=== PATIENT | male | born 1990 | race Two or more races ===

== ENCOUNTER 2025-06-10 12:44 | Observation (INO) ==
--- NOTE | 2025-06-10 12:57 | Emergency Department Note ---
Impression & Plan Anaphylaxis, Allergic reaction, Urticaria ED Provider Note NAME: ROCKY KRAUS AGE: 34 SEX: M : 1990 ARRIVES VIA: Ambulance INFORMANT: Patient, ED PROVIDER(S): Herb Cartagena DO CHIEF COMPLAINT: Bee sting HPI: Patient is a 34-year-old male who presents to the ER following being stung by 2 bees. After this he became short of breath and was initially given 1 round of epinephrine upon arrival. Upon arrival of ALS he was at this point and was not really responsive per ALS who provided additional history. He was diffusely diaphoretic and erythematous and they gave him another round of epinephrine in combination with neb treatments, Solu-Medrol and 50 mg of Benadryl. Following this they noted that his wheezing improved and he woke up and was able to communicate. Patient admits that he still little short of breath. Denies any chest pain currently. ADDITIONAL HISTORY OBTAINED: Per HPI additional history was obtained from EMS Chronic Medical/Social Conditions Affecting Care: Per HPI PAST MEDICAL HISTORY:See Below PAST SURGICAL HISTORY:See Below FAMILY HISTORY:See Below SOCIAL HISTORY:See Below HOME MEDICATIONS:See Below ALLERGIES:See Below VITALS:See Below PHYSICAL EXAMINATION: GENERAL: Sitting up in bed, alert, slightly ill-appearing, diffusely red EYE EXAM: normal conjunctiva. PERRL and EOM's grossly intact. OROPHARYNX: no exudate, no erythema, lips, buccal mucosa, and tongue normal and mucous membranes are moist NECK: supple, no nuchal rigidity, no adenopathy, non-tender LUNGS: Clear to auscultation. Normal chest wall mechanics HEART: no murmurs, S1 normal and S2 normal ABDOMEN: abdomen soft, non-tender, normo-active bowel sounds, no masses, no rebound or guarding. BACK: Back is symmetrical on inspection and there is no deformity, no midline tenderness, no CVA tenderness. SKIN: Diffuse erythema UPPER EXTREMITIES: upper extremities are grossly normal. LOWER EXTREMITIES: No pitting edema. NEURO EXAM: Normal sensorium, cranial nerves II-XII grossly intact, normal speech, no gross weakness of arms, no gross weakness of legs. MEDICAL DECISION MAKING: Patient is a 34-year-old male who presents to the ER following being stung by 2 bees. IV was established and blood work is obtained. Prior to arrival he received 2 rounds of epinephrine in combination with Benadryl steroids and per report he was nearly unresponsive. Symptoms have improved significantly. Labs showed no significant leukocytosis or anemia. BMP with mild hypokalemia at 3.4. LFTs bilirubin and troponin was negative. Lipase normal. Chest x-ray was unremarkable. He was given IV Decadron here and IV Pepcid as well as IV fluids. He was updated bedside. Discussed the case with Franklin Medel from the hospitalist service for further evaluation management treatment. Consults/Care Managements Discussions: Per [facility] Triage Nursing notes reviewed. Limited review of prior medical records performed Vital Signs: reviewed and remarkable for no significant abnormalities Differential diagnosis: Differential diagnoses includes but is not limited to toxic, metabolic, infectious, traumatic, cardiac, neurologic, hematologic, psychiatric and inflammatory etiologies. ER treatment provided: See below Diagnostics interpreted by me include EKG and cardiac monitoring as listed below: -Cardiac Monitoring: An order was placed for continuous cardiac monitoring. The monitor shows a rate of 110 with sinus rhythm. -ECG: Sinus tachycardia rate of 115 Normal axis No PVCs QTc 454 -Laboratory studies:Interpreted by me as stated above in MDM and shown below. Imaging studies: Xrays: As interpreted by me: Portable AP upright 1 view of the chest shows no focal infiltrate CTs show: None Procedures: None Critical Care: None Past Med/Surg History Problem List (Updated 06/10/25 @ 15:13 by Herb Cartagena DO) Urticaria (Acute) Allergic reaction (Acute) Anaphylaxis (Acute) Social History Smoking Status: Never smoker Preferred Language: Cymraes Feels Safe at Home: Yes Allergies Allergies Allergy/AdvReac Type Severity Reaction Status Date / Time bee pollen Allergy Intermediate SWELLING Verified 06/10/25 14:59 AT SITES peanut Allergy Mild TINGLING Verified 06/10/25 14:59 OF TONGUE A CHILD--AVOIDS Home Meds Home Medications Medication Instructions Recorded Confirmed acetaminophen 500 mg tablet 500 mg PO Q6H PRN PAIN/ACHES/FEVER 06/10/25 06/10/25 (Tylenol Extra Strength) Results & Data (ED) Vital Signs Vital Signs - 24 hr 06/10/25 12:52 06/10/25 13:01 06/10/25 13:02 Temperature 36.5 C Temperature Source Oral Pulse Rate 130 H 121 H 113 H Respiratory Rate 18 19 Respiratory Effort / Characteristics Non-Labored Spontaneous Respiratory Depth Normal Respiratory Pattern Regular Blood Pressure 101/87 125/67 Blood Pressure Mean 91 91 Pulse Oximetry 97 97 Oxygen Delivery Method Room Air Room Air Sepsis Recent Fever Within 48 Hours No Sepsis New/Unexplained Change in Mental Status No Sepsis Action Taken by Nursing No Action Required 06/10/25 13:05 06/10/25 13:07 06/10/25 13:10 Temperature Temperature Source Pulse Rate 110 H 102 H Respiratory Rate 21 19 Respiratory Effort / Characteristics Respiratory Depth Respiratory Pattern Blood Pressure 127/81 131/72 Blood Pressure Mean 91 107 Pulse Oximetry 97 99 99 Oxygen Delivery Method Room Air Room Air Sepsis Recent Fever Within 48 Hours Sepsis New/Unexplained Change in Mental Status Sepsis Action Taken by Nursing 06/10/25 13:16 06/10/25 13:30 06/10/25 13:45 Temperature Temperature Source Pulse Rate 102 H 112 H 112 H Respiratory Rate 19 17 14 Respiratory Effort / Characteristics Respiratory Depth Respiratory Pattern Blood Pressure 101/73 117/72 113/69 Blood Pressure Mean 84 80 77 Pulse Oximetry 100 100 98 Oxygen Delivery Method Room Air Room Air Sepsis Recent Fever Within 48 Hours Sepsis New/Unexplained Change in Mental Status Sepsis Action Taken by Nursing 06/10/25 14:00 06/10/25 14:15 06/10/25 14:41 Temperature Temperature Source Pulse Rate 112 H 117 H 119 H Respiratory Rate 21 19 19 Respiratory Effort / Characteristics Respiratory Depth Respiratory Pattern Blood Pressure 107/68 110/67 115/79 Blood Pressure Mean 80 77 87 Pulse Oximetry 98 98 99 Oxygen Delivery Method Sepsis Recent Fever Within 48 Hours Sepsis New/Unexplained Change in Mental Status Sepsis Action Taken by Nursing Laboratory Data 06/10/25 12:54 06/10/25 12:54 Lab Results 06/10/25 06/10/25 Range/Units 12:54 12:59 WBC 9.59 (4.8-10.8) K/ul RBC 5.23 (4.70-6.10) M/uL Hgb 15.8 (14.0-18.0) g/dL POC Hgb 16.0 (14.0-18.0) g/dl Hct 45.4 (42.0-52.0) % POC Hct 47 (42-52) % MCV 86.8 (80.0-100.0) fL MCH 30.2 (25.0-34.0) pg MCHC 34.8 (32.0-36.0) g/dL RDW Std Deviation 37.8 (36.4-46.3) fL RDW Coeff of Alirio 11.9 (11.5-14.5) % Plt Count 356 (130-400) K/uL MPV 9.6 (9.4-12.4) fL Immature Gran % (Auto) 0.3 % Neut % (Auto) 52.6 % Lymph % (Auto) 37.9 % [place] % (Auto) 8.3 % Eos % (Auto) 0.8 % Baso % (Auto) 0.1 % Neut # (Auto) 5.04 (1.40-6.50) K/uL Lymph # (Auto) 3.63 H (1.20-3.40) K/uL [place] # (Auto) 0.80 H (0.11-0.59) K/uL Eos # (Auto) 0.08 (0.00-0.50) K/uL Baso # (Auto) 0.01 (0.00-0.20) K/uL Immature Gran # (Auto) 0.03 (0.01-0.20) K/uL POC Sodium 140 (135-144) mmol/L Sodium 140 (136-145) mmol/L POC Potassium 3.4 (3.3-5.0) mmol/L Potassium 3.4 L (3.5-5.1) mmol/L POC Chloride 105 (101-112) mmol/L Chloride 105 (98-107) mmol/L Carbon Dioxide 22 (21-32) mmol/L POC Total CO2 20 L (24-31) mmol/L Anion Gap 13 H (3-11) POC Anion Gap 19.0 (16-25) mmol/L POC BUN 16 (7-18) mg/dl BUN 17 (6-23) mg/dl Creatinine 1.15 (0.6-1.4) mg/dl POC Creatinine 1.2 (0.6-1.3) mg/dl Est Cr Clr Drug Dosing 103.9 ml/min eGFR 86.18 BUN/Creatinine Ratio 14.8 (10-20) Glucose 148 H (70-99(Fasting)) mg/dl POC Glucose (other) 146 H (70-99) mg/dl Calcium 9.7 (8.6-10.3) mg/dl POC Ioniz Calcium Bennie 1.13 (1.12-1.32) mmol/l Total Bilirubin 0.7 (0.2-1.0) mg/dl AST 18 (13-39) U/L ALT 19 (7-52) U/L Alkaline Phosphatase 78 (34-104) U/L Troponin I High Sens 2.4 (0-20) pg/ml Total Protein 7.3 (6.0-8.3) gm/dl Albumin 4.5 (3.4-5.0) gm/dl Globulin 2.8 (2.5-4.0) gm/dl Albumin/Globulin Ratio 1.6 (0.9-2) Lipase 50 (11-82) U/L Administered Medications Discontinued Medications Dexamethasone Sodium Phosphate (DexamethasonePf 10 Mg/Ml Vial) 10 mg IV NOW ONE Stop: 06/10/25 12:51 Last Admin: 06/10/25 12:58 Dose: 10 mg Documented By: RAFITA Diphenhydramine HCl (Diphenhydramine 50 Mg/Ml Vial) 25 mg IV NOW STA Stop: 06/10/25 12:53 Last Admin: 06/10/25 12:58 Dose: 25 mg Documented By: RAFITA Famotidine (Pepcid 20mg Iv Push) 20 mg in 5 mls @ 2.5 mls/min IV NOW STA Stop: 06/10/25 12:51 Last Admin: 06/10/25 12:58 Dose: 2.5 mls/min Documented By: RAFITA Sodium Chloride (Nss) 1,000 mls @ 999 mls/hr IV .Q1H1M ONE Stop: 06/10/25 13:52 Last Infusion: 06/10/25 14:46 Dose: Infused Documented By: Admin: 06/10/25 12:58 Dose: 999 mls/hr Documented By: RAFITA Imaging Data Radiologist's Impression: Chest X-Ray 06/10/25 12:50 SINGLE VIEW CHEST CLINICAL HISTORY: Chest pain. Allergic reaction to bee sting. FINDINGS: An AP, portable, semierect chest radiograph is obtained. No prior studies are available for comparison at the time of dictation. The examination is degraded by portable technique and patient rotation. The cardiomediastinal silhouette is unremarkable. There is mild bibasilar atelectasis. The lungs and pleural spaces are otherwise clear. No pneumothorax is seen. The bony thorax is grossly intact. IMPRESSION: No acute cardiopulmonary abnormality is identified. ACT 112: Negative or not required by law. Electronically signed by: Paddy Romano M.D. 06/10/2025 1:07 PM Discharge Plan Visit Data Chief Complaint: Allergic Reaction Stated Complaint: ALLERGIC REACTION ED Provider: Herb Cartagena Discharge Problem: Anaphylaxis, Allergic reaction, Urticaria Condition: Fair Forms Stand Alone Forms: [facility] [employer] Prescriptions Prescriptions: No Action acetaminophen [Tylenol Extra Strength] 500 mg Tablet 500 mg PO Q6H PRN (Reason: PAIN/ACHES/FEVER) Referrals Referrals: PCP,NO [Primary Care Provider] - Discharge Problem: Anaphylaxis Qualifiers: Encounter type: initial encounter Qualified Code(s): T78.2XXA - Anaphylactic shock, unspecified, initial encounter Allergic reaction Qualifiers: Encounter type: initial encounter Qualified Code(s): T78.40XA - Allergy, unspecified, initial encounter
[2025-06-10] MEDS: diphenhydrAMINE 50 MG/ML VIAL IV STA (12:58)
[2025-06-10] MEDS: FAMOTIDINE 20MG IV PUSH 20 MG/5 ML SYR IV STA (12:58)
[2025-06-10] MEDS: dexAMETHasone**PF** 10 MG/ML VIAL IV ONE (12:58)
[2025-06-10] MEDS: SODIUM CHLORIDE 0.9% 1,000 ML IV ONE (12:58)
--- NOTE | 2025-06-10 13:09 | XRay Report ---
SINGLE VIEW CHEST CLINICAL HISTORY: Chest pain. Allergic reaction to bee sting. FINDINGS: An AP, portable, semierect chest radiograph is obtained. No prior studies are available for comparison at the time of dictation. The examination is degraded by portable technique and patient r otation. The cardiomediastinal silhouette is unremarkable. There is mild bibasilar atelectasis. The lungs and pleural spaces are otherwise clear. No pneumothorax is seen. The bony thorax is grossly int act. IMPRESSION: No acute cardiopulmonary abnormality is identified. ACT 112: Negative or not required by law. Electronically signed by: Paddy Romano M.D. 06/10/2025 1:07 PM
[2025-06-10 13:23] LABS: Hematocrit (blood only) 45.4 % (42.0-52.0); Hemoglobin 15.8 g/dL (14.0-18.0); Immature Granulocytes # (auto) 0.03 K/uL (0.01-0.20); Immature Granulocytes % (auto) 0.3 %; Mean Corpuscular Hemoglobin 30.2 pg (25.0-34.0); Mean Corpuscular Volume 86.8 fL (80.0-100.0); Platelet Count 356 K/uL (130-400); RDW Standard Deviation 37.8 fL (36.4-46.3); Red Blood Count 5.23 M/uL (4.70-6.10); White Blood Count 9.59 K/ul (4.8-10.8)
[2025-06-10 13:39] LABS: Alanine Aminotransferase 19.0 U/L (7-52); Albumin Globulin Ratio 1.6 (0.9-2); Albumin Level 4.5 gm/dl (3.4-5.0); Alkaline Phosphatase 78.0 U/L (34-104); Anion Gap 13.0 (3-11); Bilirubin,Total 0.7 mg/dl (0.2-1.0); Blood Urea Nitrogen 17.0 mg/dl (6-23); Calcium 9.7 mg/dl (8.6-10.3); Carbon Dioxide 22.0 mmol/L (21-32); Chloride 105.0 mmol/L (98-107); Creatinine Clr Calc Pharmacy 103.9 ml/min; Globulin 2.8 gm/dl (2.5-4.0); Glucose 148.0 mg/dl (70-99(Fasting)); Lipase 50.0 U/L (11-82); Potassium 3.4 mmol/L (3.5-5.1); Sodium 140.0 mmol/L (136-145); Total Protein 7.3 gm/dl (6.0-8.3)
--- NOTE | 2025-06-10 14:51 | History & Physical Report ---
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 Unclear if this is a joe allergic reaction or toxidrome consequential of a large volume of bee venom resulting in a non-perfusing cardiac arrhythmia; nonetheless resuscitation was successful with interventions provided; the pa rory will remain admitted for observation and symptom resolution; given that this was a biphasic anaphylactic reaction given the duration of his symptomatology and volume of epinephrine needed for resuscitation, would prefer 24-hour observation and asymptomatic duration of at minimum 6 hours before discharge; patient is eager for discharge this evening due to family reasons, we discussed the risks of potential premature discharge and the patient is understanding of this Monitor with continuous cardiac telemetry History of Present Illness Chief Complaint: Anaphylaxis versus toxidrome Primary Care Provider: NO PCP Mr. 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 En route to the hospital patient was administered 2 doses of epinephrine, 1 dose of Benadryl, 2 DuoNeb treatments, 120 mg of Solu-Medrol. Upon arrival in the emergency department the patient was then administered 10 mg of Decadron and 40 mg of Pepcid. At the time my evaluation the patient is alert, able to maintain conversation and has some recollection of the events that led to his hospitalization. He denies any chest pain, palpitations, shortness of breath, pleuritic chest pain. The patient does note epigastric discomfort that is mild in severity and does not radiate. Allergies Allergy/AdvReac Type Severity Reaction Status Date / Time bee pollen Allergy Intermediate SWELLING Verified 06/10/25 14:59 AT SITES peanut Allergy Mild TINGLING Verified 06/10/25 14:59 OF TONGUE A CHILD--AVOIDS Home Medications Medication Instructions Recorded Confirmed Type acetaminophen 500 mg tablet 500 mg PO Q6H PRN PAIN/ACHES/FEVER 06/10/25 06/10/25 History (Tylenol Extra Strength) Past Med/Surg History Problem List (Updated 06/10/25 @ 16:42 by Franklin Medel DO) Bee sting-induced anaphylaxis (Acute) Anaphylaxis (Acute) Social History Smoking Status: Never smoker Preferred Language: Hungarian Feels Safe at Home: Yes Review of Systems Review of Systems: Review of constitutional, cardiovascular, pulmonary, gastrointestinal, integumentary system was unremarkable except for pertinent positive and negative findings discussed above Physical Exam Physical Exam: General: Adult male in no acute distress Vital Signs: Reviewed; persistently tachycardic with regular RR interval noted on telemetry HEENT: Increased tearing; uvula is midline with no significant posterior oropharyngeal injury or inflammation Neck: Trachea is midline Pulmonary: Symmetric chest wall excursion without restriction; clear to auscultation bilaterally Cardiovascular: Tachycardic rate with regular rhythm; no murmurs rubs or gallops; S1 and S2 normal; right radial pulse 2+; no notable lower extremity e tala Gastrointestinal: Soft, nondistended; normal bowel sounds throughout Neurologic: Cranial nerves II through XII grossly intact; no discernible focal weakness nor paresthesia Skin: Large welt present overlying the patient's right anterior neck and first MCP of the right hand, these are nontender to palpation Results & Data Results & Data Vital Signs (Past 12 Hours) Vital Signs Temp Pulse Resp BP Pulse Ox O2 Del Method 06/10/25 14:41 119 H 19 115/79 99 06/10/25 14:15 117 H 19 110/67 98 06/10/25 14:00 112 H 21 107/68 98 06/10/25 13:45 112 H 14 113/69 98 Room Air 06/10/25 13:30 112 H 17 117/72 100 06/10/25 13:16 102 H 19 101/73 100 Room Air 06/10/25 13:10 102 H 19 131/72 99 06/10/25 13:07 99 Room Air 06/10/25 13:05 110 H 21 127/81 97 Room Air 06/10/25 13:02 113 H 06/10/25 13:01 121 H 19 125/67 97 Room Air 06/10/25 12:52 36.5 C 130 H 18 101/87 97 Room Air Code Status & VTE Plan Code Status Full code PG Care Time/CCT Total # of Minutes Spent Total Time Spent with Patient: Total time spent is greater than 50% in coordination of care (as documented) at patient's floor/unit and/or counseling patient: Coding Level of Care Code 18635 INT INP/OBS CARE Diagnoses Bee sting-induced anaphylaxis T63.441A; T78.2XXA Anaphylaxis T78.2XXA Encounter type: initial encounter (2) Anaphylaxis Encounter type: initial encounter Qualified Code(s): T78.2XXA - Anaphylactic shock, unspecified, initial encounter
--- NOTE | 2025-06-10 17:18 | Electrocardiogram Report ---
Test Reason : Blood Pressure : */* mmHG Vent. Rate : 115 BPM Atrial Rate : * BPM P-R Int : 200 ms QRS Dur : 80 ms QT Int : 312 ms P-R-T Axes : * 65 55 degrees QTcB Int : 432 ms Sinus tachycardia No previous ECGs available Confirmed by Daniel Diana ([id number]) on 06/10/2025 5:18:32 PM Referred By: Confirmed By: Daniel Diana
[2025-06-10] MEDS: ENOXAPARIN INJ 40 MG/0.4 ML SYR SQ SCH (21:12)
[2025-06-11 02:56] VITALS: BP 118/57; PULSE 89; RESP 20; TEMP 97.7; O2SAT 98
--- NOTE | 2025-06-11 14:43 | Discharge Summary ---
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 Unclear if this is a joe allergic reaction or toxidrome consequential of a large volume of bee venom resulting in a non-perfusing cardiac arrhythmia; nonetheless, resuscitation was successful with interventions provided; the patient remained admitted for observation and symptom resolution; given that this was a biphasic anaphylactic reaction, given the duration of his symptomatology and volume of epinephrine needed for resuscitation, he was observed overnight to ensure a minimum of 6 hours without recurrent symptoms Epipen prescribed at discharge - Strongly encouraged the patient to establish with a local primary care provider Admission HPI Per Admitting Provider Mr. 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 En route to the hospital patient was administered 2 doses of epinephrine, 1 dose of Benadryl, 2 DuoNeb treatments, 120 mg of Solu-Medrol. Upon arrival in the emergency department the patient was then administered 10 mg of Decadron and 40 mg of Pepcid. At the time my evaluation the patient is alert, able to maintain conversation and has some recollection of the events that led to his hospitalization. He denies any chest pain, palpitations, shortness of breath, pleuritic chest pain. The patient does note epigastric discomfort that is mild in severity and does not radiate. Discharge Exam General: Adult male in no acute distress Vital Signs: Reviewed Pulmonary: Symmetric chest wall excursion without restriction Cardiovascular: Regular rate and rhythm with right radial pulse 2+; no notable lower extremity edema Neurologic: Cranial nerves II through XII grossly intact; no discernible focal weakness nor paresthesia Skin: Large welt present overlying the patient's right anterior neck and first MCP of the right hand, these are nontender to palpation Discharge Plan Discharge Items Patient Disposition: Home - Self-Care Reason For Visit: BIPHASIC ANAPHYLAXIS Discharge Diagnosis: Biphasic anaphylaxis Condition on Discharge: Fair Activity: Per Instructions section Non-emergency contact: Primary Care Provider Call non-emergency contact if: you have any medication questions and your symptoms worsen Follow-up/Referrals: PCP,NO [Primary Care Provider] - Diet: Regular Fluids: 2000ml (8 cups) Addtl Attending Provider Instructions: You were admitted to [facility] for biphasic anaphylaxis after 2 bee stings sustained on 06/10. After appropriate resuscitative measures provided by ACLS and the emergency department, he remained stable and asymptomatic with respect to your presenting symptoms. 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 Thank you for choosing [facility] as your healthcare provider. Pending Studies at Discharge: No Stand-Alone Forms: My [facility], Work/School Release Medications and DC Order Prescriptions: New epinephrine [EpiPen 2-Claudio] 0.3 mg/0.3 mL auto-injector 0.3 mg IM Q3H PRN (Reason: anaphylaxis) Qty: 2 0RF Discontinued acetaminophen [Tylenol Extra Strength] 500 mg Tablet 500 mg PO Q6H PRN (Reason: PAIN/ACHES/FEVER) Discharge Orders: Discharge Order (Routine); Ordered 06/11/25 Ordered By: Franklin Syed/Other Patient Handouts: First Aid: Allergic Reactions, ED Using an I njection Pen Admission Data Admit Date/Time: 06/10/25 16:47 Attending Provider: Franklin Medel Admit Provider: Franklin Medel Primary Care Provider: PCP,NO Other Providers: Franklin Medel Other Interventions: Discharge Summary Assessment (RN) Last Done: 06/11/25 08:01 Hospital Stay Data Consultations 06/10/25 13:54 ED Decision to Admit Stat Pending Results Patient Have Any Pending Studies at Discharge: No Discharge Instructions Given to Patient (Per Discharging Provider) You were admitted to [facility] for biphasic anaphylaxis after 2 bee stings sustained on 06/10. After appropriate resuscitative measures provided by ACLS and the emergency department, he remained stable and asymptomatic with respect to your presenting symptoms. 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 Thank you for choosing [facility] as your healthcare provider. Total Time Total Time Spent Total Time Spent (In Minutes): I personally spent 40 minutes in today's discharge including bedside counseling, physical exam, and medication reconciliation Coding Level of Care Code 16390 INP/OBS DISCH >30 MIN Diagnoses Bee sting-induced anaphylaxis T63.441A; T78.2XXA Anaphylaxis T78.2XXA Encounter type: initial encounter
== END 2025-06-11 09:41 | disposition home or self-care (01) ==
LOC: 2E 12:44 → ED 12:44 → 2E 18:20